=== PATIENT | female | born 1970 | race Caucasian/White ===

== ENCOUNTER 2021-05-17 02:31 | Day surgery (SDC) | payer OTHER, SELFPAY ==
[2021-05-06 16:09] VITALS: BMI 23.8
--- NOTE | 2021-05-15 10:51 | PC.NURSE ---
Pt called in stating she is constipated and has not had a BM for 4-5 days. She is scheduled for 05/17/2021 for screening colonoscopy. Pt states she has problems with constipation. She states she is cramping and is passing very small hard stool and would like to start prep earlier than tomorrow. I instructed pt to do our 2 day prep and to drink clear liquids today and drink a 10 oz. bottle of Magnesium Citrate this afternoon when she gets home from work. Remain on clear liquids throughout the day tomorrow and follow the instructions she has for tomorrow. Encouraged to drink plenty of clear liquids.
--- NOTE | 2021-05-16 13:37 | WPDANESEPP ---
Anes - Eval Pre Procedure Procedure: Operation Date: 05/17/21 09:30 Proposed Procedures p Screening Colonoscopy - Armando Ramirez MD Date/Time: 05/16/21 13:37 Pre Op Diagnosis: neoplasm screening Patient Data Age: 51 Gender: F Height: 1.85 m Weight: 82 kg Allergies Allergy/AdvReac Type Severity Reaction Status Date / Time No Known Allergies Allergy Verified 05/06/21 16:11 Home Medications Medication Instructions Recorded Confirmed Type ergocalciferol (vitamin D2) 50,000 unit PO WEEKLY 05/06/21 05/06/21 History ferrous sulfate 325 mg PO DAILY 05/06/21 05/06/21 History Patient hx anesthesia problems: none Family hx anesthesia problems: none Results Review: All pre-operative results and documents have been reviewed as part of the pre-operative evaluation. PMFSH Past Medical History Medical History (Updated 05/16/21 @ 13:37 by Lucas Cason DO) Anxiety Depression Endometriosis Surgical History Surgical History (Updated 05/16/21 @ 13:37 by Lucas Cason DO) History of x2 Social History Social History Smoking status: Never smoker Alcohol intake: former Substance use: never Substance use type: does not use Living arrangements: with family Spiritual care concerns: No Exam Day of Procedure 05/16/21 13:37
--- NOTE | 2021-05-16 15:18 | PM.HPGS ---
History of Present Illness History of Present Illness Consent: Risks, benefits, and alternatives have been discussed and questions answered. Patient agrees to proceed with procedure. Chief complaint: neoplasm screening Narrative: Landy Elliott is a 51 year old female Referred for colon cancer screen Review of Systems Review of Systems: All systems reviewed & are unremarkable except as noted in HPI and below PMFSH Past Medical History Medical History Anxiety Depression Endometriosis Surgical History Surgical History History of x2 Social History Social History Smoking status: Never smoker Alcohol intake: former Substance use: never Substance use type: does not use Living arrangements: with family Spiritual care concerns: No Meds Home Medications and Allergies Home Medications Medication Instructions Recorded Confirmed Type ergocalciferol (vitamin D2) 50,000 unit PO WEEKLY 05/06/21 05/17/21 History ferrous sulfate 325 mg PO DAILY 05/06/21 05/17/21 History Allergies Allergy/AdvReac Type Severity Reaction Status Date / Time No Known Allergies Allergy Verified 05/17/21 08:33 Exam Const: General: alert Orientation/consciousness: patient oriented x3 Resp: Auscultation: clear to auscultation bilaterally Cardio: Rhythm: regular rhythm GI: GI Palp: Yes Soft to palpation and No Tenderness to palpation present (GI) Neuro: General: patient oriented x3 Assessment and Plan Assessment and plan (1) Colon cancer screening: Code(s): Z12.11 - Encounter for screening for malignant neoplasm of colon Status: Acute Assessment and Plan: Colonoscopy with possible biopsy or polypectomy or cautery or injection of substances.
[2021-05-17 08:34] VITALS: BP 120/77; PULSE 69; RESP 16; TEMP 36.7; O2SAT 100
[2021-05-17] MEDS: LACTATED RINGERS 1,000 ML 150 ML IV CONT (08:45)
--- NOTE | 2021-05-17 08:45 | WPDANESEFPP ---
Anes - Eval Final PreProcedure Day of Procedure 05/17/21 08:45 Patient weight: normal Heart: regular rate and rhythm Lungs: clear to auscultation Airway: Mallampati scale class II Neurological: alert and oriented Last oral intake: >/= 8 hours ASA classification: II Emergent: no Anesthetic plan: proceed Anesthesia type and monitoring: general GIVS and standard monitoring Results Review: All pre-operative results and documents have been reviewed as part of the pre-operative evaluation. Informed Consent: The patient's anesthetic plan and its attendant risks and benefits were discussed with the patient/family/POA. Questions were solicited and answers provided to the satisfaction of the patient/family/POA.
[2021-05-17 09:50] VITALS: BP 101/69; PULSE 73; RESP 18; O2SAT 100
[2021-05-17 10:00] VITALS: BP 105/52; PULSE 72; RESP 22; O2SAT 100
[2021-05-17 10:10] VITALS: BP 112/75; PULSE 63; RESP 21; O2SAT 98
== END 2021-05-17 10:16 | disposition home or self-care (01) ==
PROVIDERS: Visit Provider Internal Medicine Gastroenterology
PROC: 0DJD8ZZ Inspection of Lower Intestinal Tract, Via Natural or Artificial Opening Endoscopic (ICD-10-PCS; CPT 45378; principal; 2021-05-17 09:30)
DX: Z12.11 Encounter for screening for malignant neoplasm of colon (principal); D12.2 Benign neoplasm of ascending colon; K62.1 Rectal polyp; K63.5 Polyp of colon
CPT/HCPCS: 45385; 45381; 88305; J2704; J7120

== ENCOUNTER 2023-08-11 01:35 | Day surgery (SDC) | payer BC, SELFPAY ==
[2023-07-23 10:55] VITALS: BMI 24.4
[2023-08-11 10:17] VITALS: BP 128/75; PULSE 63; RESP 20; TEMP 35.9; O2SAT 100
--- NOTE | 2023-08-11 10:37 | WPDANESEPPF ---
Anes - Initial Pre Proc Eval Procedure: Operation Date: 08/11/23 11:30 Proposed Procedures p Colonoscopy - Deng Howell MD Date/Time: 08/11/23 10:37 Surgeon: Deng Howell MD Pre Op Diagnosis: Personal history colon polyps Patient Data Age: 53 Gender: F Height: 1.85 m Weight: 83 kg Last Vital Signs Temp 96.6 F L 08/11/23 10:17 Pulse 63 08/11/23 10:17 Resp 20 08/11/23 10:17 BP 128/75 08/11/23 10:17 Pulse Ox 100 08/11/23 10:17 O2 Del Method Room Air 08/11/23 10:17 Allergies Allergy/AdvReac Type Severity Reaction Status Date / Time No Known Allergies Allergy Verified 08/11/23 10:16 Home Medications Medication Instructions Recorded Confirmed Type ergocalciferol (vitamin D2) 1,250 50,000 unit PO WEEKLY 05/06/21 07/23/23 History mcg (50,000 unit) capsule venlafaxine 37.5 mg 37.5 mg PO DAILY 07/23/23 07/23/23 History capsule,extended release 24 hr Patient hx anesthesia problems: none Family hx anesthesia problems: none Results Review: All pre-operative results and documents have been reviewed as part of the pre-operative evaluation. [facility] Past Medical History Medical History (Updated 05/22/21 @ 14:24 by Xochilt Esqueda) Anxiety Depression Endometriosis Surgical History Surgical History (Updated 05/22/21 @ 14:24 by Xochilt Esqueda) History of x2 Social History Social History (System 05/22/21 @ 14:24 by Xochilt Esqueda) Smoking status: Never smoker Alcohol intake: former Substance use: never Substance use type: does not use Living arrangements: with family Spiritual care concerns: No Anes - Eval Final PreProcedure Day of Procedure 08/11/23 10:37 Patient weight: normal Heart: regular rate and rhythm Lungs: clear to auscultation Airway: Mallampati scale class II Neurological: alert and oriented Last oral intake: >/= 8 hours ASA classification: II Emergent: no Anesthetic plan: proceed Anesthesia type and monitoring: general GIVS and standard monitoring Results Review: All pre-operative results and documents have been reviewed as part of the pre-operative evaluation. Informed Consent: The patient's anesthetic plan and its attendant risks and benefits were discussed with the patient/family/POA. Questions were solicited and answers provided to the satisfaction of the patient/family/POA.
[2023-08-11] MEDS: LACTATED RINGERS 1,000 ML 150 ML IV CONT (10:39)
--- NOTE | 2023-08-11 10:46 | PM.HPGS ---
History of Present Illness History of Present Illness Consent: Risks, benefits, and alternatives have been discussed and questions answered. Patient agrees to proceed with procedure. Chief complaint: Personal history colon polyps Narrative: Landy Elliott is a 53 year old female with colon polyp in 2021 Review of Systems Review of Systems: All systems reviewed & are unremarkable except as noted in HPI and below PMFSH Past Medical History Medical History (Updated 08/11/23 @ 10:50 by Deng Howell MD) Adenomatous colon polyp Anxiety Depression Endometriosis Surgical History Surgical History (Updated 05/22/21 @ 14:24 by Xochilt Esqueda) History of x2 Social History Social History (System 05/22/21 @ 14:24 by Xochilt Esqueda) Smoking status: Never smoker Alcohol intake: former Substance use: never Substance use type: does not use Living arrangements: with family Spiritual care concerns: No Meds Home Medications and Allergies Home Medications Medication Instructions Recorded Confirmed Type ergocalciferol (vitamin D2) 1,250 50,000 unit PO WEEKLY 05/06/21 07/23/23 History mcg (50,000 unit) capsule venlafaxine 37.5 mg 37.5 mg PO DAILY 07/23/23 07/23/23 History capsule,extended release 24 hr Allergies Allergy/AdvReac Type Severity Reaction Status Date / Time No Known Allergies Allergy Verified 08/11/23 10:16 Vital Signs Vital Signs - 24 hr 08/11/23 10:17 Temperature 96.6 F L Pulse Rate 63 Respiratory Rate 20 Blood Pressure 128/75 Pulse Oximetry 100 Oxygen Delivery Room Air Exam Const: General: comfortable and no acute distress HENMT: Face/Nose/Sinus: Normal nares present Eyes: General: appearance normal, both eyes and all related structures Neck: Neck: no JVD Resp: Auscultation: clear to auscultation bilaterally Cardio: Rate: regular rate Rhythm: regular rhythm GI: Inspection: non-distended GI Palp: Yes Soft to palpation Skin: General skin exam: normal color Neuro: General: gait normal Speech: normal speech Extrem: General: normal to inspection Psych: Mental Status: mental status grossly normal Assessment and Plan Assessment and plan (1) Adenomatous colon polyp: Code(s): D12.6 - Benign neoplasm of colon, unspecified Status: Acute Assessment and Plan: colonoscopy
[2023-08-11 11:21] VITALS: BP 109/65; PULSE 57; RESP 18; O2SAT 100
[2023-08-11 11:31] VITALS: BP 111/65; PULSE 55; RESP 18; O2SAT 100
[2023-08-11 11:41] VITALS: BP 129/74; PULSE 54; RESP 18; O2SAT 100
== END 2023-08-11 12:10 | disposition home or self-care (01) ==
PROVIDERS: PCP Nurse Practitioner Family; Visit Provider Internal Medicine Gastroenterology
PROC: 0DJD8ZZ Inspection of Lower Intestinal Tract, Via Natural or Artificial Opening Endoscopic (ICD-10-PCS; CPT 45378; principal; 2023-08-11 11:30)
DX: Z12.11 Encounter for screening for malignant neoplasm of colon (principal); K63.5 Polyp of colon; K64.8 Other hemorrhoids; F41.9 Anxiety disorder, unspecified; F32.A Depression, unspecified
CPT/HCPCS: 45385; 88305; J2704; J7120